=== PATIENT | male | born 1995 | race Caucasian/White ===

== ENCOUNTER 2018-05-31 13:48 | Emergency (ER) | payer OTHER ==
[~2018-05-31] VITALS: Ht 177.8 cm; Wt 74.8 kg
[2018-05-31 13:52] VITALS: Ht 177.8 cm; Wt 74.8 kg
[2018-05-31 14:50] VITALS: BP 136/86
== END 2018-05-31 14:50 | disposition home or self-care (01) ==
LOC: ED 13:48
DX: S42.001A Fracture of unspecified part of right clavicle, initial encounter for closed fracture (principal); J45.909 Unspecified asthma, uncomplicated; W05.1XXA Fall from non-moving nonmotorized scooter, initial encounter; Y93.I9 Activity, other involving external motion; Y92.413 State road as the place of occurrence of the external cause; Y99.8 Other external cause status